=== PATIENT | male | born 1965 ===

== ENCOUNTER 2017-09-29 06:48 | Day surgery (SDC) | payer OTHER ==
[~2017-09-29] VITALS: Ht 170.2 cm; Wt 95.3 kg
[2017-09-29] VITALS (10 sets, daily range): BP systolic 128–158; BP diastolic 68–91
[~2017-09-29 06:48] MED LIST: LOSARTAN POTAS100 MG ORAL
[2017-09-29] MEDS ORDERED: TOPIRAMATE25 M1 ORAL (07:30)
[2017-09-29] MEDS ORDERED: VENLAFAXINE H37.5 M1 ORAL (07:30)
[2017-09-29 07:50] LABS: BASOPHILS % (AUTO) 1.4 % (0.0-2.0); EOSINOPHILS % (AUTO) 3.8 % (0.0-3.0); MEAN CORPUSCULAR HGB CONC 33.3 G/DL (32.0-36.0); MEAN CORPUSCULAR VOLUME 96 FL (80-99); MEAN PLATELET VOLUME 8.6 FL (6.5-10.1); MONOCYTES % (AUTO) 15.6 % (1.0-10.0); NEUTROPHILS % (AUTO) 47.2 % (45.0-75.0); PLATELET COUNT 211 K/UL (150-450); RED BLOOD COUNT 4.47 M/UL (4.70-6.10); RED CELL DISTRIBUTION WIDTH 11.7 % (11.6-14.8); WHITE BLOOD COUNT 5.2 K/UL (4.8-10.8)
[2017-09-29 07:55] LABS: ANION GAP 8 mmol/L (5-15); CALCIUM 8.7 MG/DL (8.5-10.1); CARBON DIOXIDE 25 MMOL/L (21-32); CHLORIDE 107 MMOL/L (98-107); CREATININE 0.8 MG/DL (0.55-1.30); GLOMERULAR FILTRATION RATE > 60 mL/min (>60); POTASSIUM 3.9 MMOL/L (3.5-5.1); SODIUM 140 MMOL/L (136-145)
[2017-09-29] MEDS ORDERED: ceFAZolin sod 1 GM in NS 55 ML IVPB ONE (08:00)
[2017-09-29] MEDS ORDERED: Lidocaine 1% Plain 30 ml INJ ONE ×2 (08:59→10:35)
[2017-09-29] MEDS ORDERED: Dexamethasone 4mg/ml vial ONE ×2 (08:59→10:35)
[2017-09-29] MEDS ORDERED: Betadine 10% Oint 15gm TOPIC ONE ×2 (08:59→10:35)
[2017-09-29] MEDS ORDERED: Bacitracin 50000 Units Vial ONE ×2 (09:00→10:35)
[2017-09-29] MEDS ORDERED: Bupivacaine 0.25% Inj 30ml INJ ONE ×2 (09:00→10:35)
--- NOTE | 2017-09-29 09:24 | Pre-Procedure Note/Attestation ---
Pre-Procedure Note/Attestation Complete Prior to Procedure Planned Procedure: bilateral Procedure Narrative: correction of hammer toe bilateral 5th with arthroplasty, MPJ and tendon release release with possible K-wire fixation Indications for Procedure Pre-Operative Diagnosis: painful hammer toe and MPJ contraction bilateral 5th . Attestation I attest that I discussed the nature of the procedure; its benefits; risks and complications; and alternatives (and the risks and benefits of such alternatives ), prior to the procedure, with the patient (or the patient's legal route sales representative). I attest that, if there was a reasonable possibility of needing a blood transfusion, the patient (or the patient's legal route sales representative) was given the [place] [employer] standardized written summary, pursuant to the Boni Blake Blood Safety Act ([place] Health and Safety Code # 1645, as amended). I attest that I re-evaluated the patient just prior to the surgery and that there has been no change in the patient's H&P, except as documented below: DAQUAN EDMONDSON DPM Sep 29, 2017 09:24
[2017-09-29] MEDS ORDERED: fentaNYL 100 mcg/2 mL IV ONE (09:30)
[2017-09-29] MEDS ORDERED: NS Irrig 1000ml ONE (09:30)
[2017-09-29] MEDS ORDERED: Ketorolac 30mg Inj ONE (09:30)
[2017-09-29] MEDS ORDERED: Midazolam 2mg/2ml Inj ONE (09:30)
[2017-09-29] MEDS ORDERED: LR 1000ml ONE (09:30)
[2017-09-29] MEDS ORDERED: Metoclopramide 10mg/2ml Inj ONE (09:30)
[2017-09-29] MEDS ORDERED: Propofol 1,000mg/ 100ml btl IV ONE (09:30)
[2017-09-29] MEDS ORDERED: Propofol 200mg/20ml IV ONE (09:30)
[2017-09-29] MEDS ORDERED: Sterile Water Irrig 1000ml IRRIG ONE (09:30)
[2017-09-29] MEDS ORDERED: LR 1000ml 1,000 ML IVLG SCH (10:08)
--- NOTE | 2017-09-29 10:11 | Anethesia Preoperative Eval ---
Anesthesia Pre-op PMH/ROS General Date of Evaluation: Sep 29, 2017 Time of Evaluation: 09:30 Anesthesiologist: christiano ASA Score: ASA 2 Mallampati Score Class I : Soft palate, uvula, fauces, pillars visible Class II: Soft palate, uvula, fauces visible Class III: Soft palate, base of uvula visible Class IV: Only hard plate visible Mallampati Classification: Class II Surgeon: Jesi Diagnosis: Hammertoe Surgical Procedure: Hamertoe Repair Anesthesia History: none Family History: no anesthesia problems Allergies: Coded Allergies: No Known Allergies (Unverified , 09/29/17) Medications: see eMAR Past Medical History Cardiovascular: Reports: HTN Anesthesia Pre-op Phys. Exam Physician Exam Last Vital Signs Date Time Temp Pulse Resp B/P (MAP) Pulse Ox O2 Delivery O2 Flow Rate FiO2 09/29/17 07:33 97.8 56 17 144/90 96 Room Air Constitutional: NAD Neurologic: CN 2-12 intact Cardiovascular: RRR Respiratory: CTA Gastrointestinal: S/NT/ND Airway Exam Mallampati Score: Class II MO: full ROM: full Teeth: intact Anesthesia Pre-op A/P Labs Hematology Test 09/29/17 07:34 White Blood Count 5.2 K/UL (4.8-10.8) Red Blood Count 4.47 M/UL (4.70-6.10) L Hemoglobin 14.3 G/DL (14.2-18.0) Hematocrit 42.9 % (42.0-52.0) Mean Corpuscular Volume 96 FL (80-99) Mean Corpuscular Hemoglobin 32.0 PG (27.0-31.0) H Mean Corpuscular Hemoglobin Concent 33.3 G/DL (32.0-36.0) Red Cell Distribution Width 11.7 % (11.6-14.8) Platelet Count 211 K/UL (150-450) Mean Platelet Volume 8.6 FL (6.5-10.1) Neutrophils (%) (Auto) 47.2 % (45.0-75.0) Lymphocytes (%) (Auto) 32.0 % (20.0-45.0) Monocytes (%) (Auto) 15.6 % (1.0-10.0) H Eosinophils (%) (Auto) 3.8 % (0.0-3.0) H Basophils (%) (Auto) 1.4 % (0.0-2.0) Coagulation Test 09/29/17 07:34 Prothrombin Time 10.0 SEC (9.30-11.50) Prothromb Time International Ratio 1.0 (0.9-1.1) Activated Partial Thromboplast Time 27 SEC (23-33) Chemistry Test 09/29/17 07:34 Sodium Level 140 MMOL/L (136-145) Potassium Level 3.9 MMOL/L (3.5-5.1) Chloride Level 107 MMOL/L (98-107) Carbon Dioxide Level 25 MMOL/L (21-32) Anion Gap 8 mmol/L (5-15) Blood Urea Nitrogen 20 mg/dL (7-18) H Creatinine 0.8 MG/DL (0.55-1.30) Estimat Glomerular Filtration Rate > 60 mL/min (>60) Glucose Level 93 MG/DL (74-106) Calcium Level 8.7 MG/DL (8.5-10.1) Risk Assessment & Plan Plan: MAC Local Status Change Before Surgery: No Pre-Antibiotics Drug: Ancef Given Within 1 Hr of Incision: Yes Time Given: 09:45 Stephen Marquez M.D. Sep 29, 2017 10:11
--- NOTE | 2017-09-29 10:14 | Immediate Post-Op Evaluation ---
Immediate Post-Op Evalulation Immediate Post-Op Evalulation Procedure: Bilateral Hammertoe Correction Date of Evaluation: Sep 29, 2017 Time of Evaluation: 11:00 IV Fluids: 1000 Blood Products: 0 Estimated Blood Loss: 0 Urinary Output: 0 Blood Pressure Systolic: 129 Blood Pressure Diastolic: 80 Pulse Rate: 90 Respiratory Rate: 16 O2 Sat by Pulse Oximetry: 99 Temperature (Fahrenheit): 98 Pain Score (1-10): 0 Nausea: No Vomiting: No Patient Status: awake, reacts, patent Hydration Status: adequate Drug: Ancef Given Within 1 Hr of Incision: Yes Time Given: 09:40 Stephen Marquez M.D. Sep 29, 2017 10:14
[2017-09-29] MEDS ORDERED: DiphenhydrAMINE 50mg/ml Inj IVP PRN (10:15)
[2017-09-29] MEDS ORDERED: Hydromorphone 0.5mg/0.5ml inj IVP PRN (10:15)
[2017-09-29] MEDS ORDERED: Morphine Sulfate 2mg/ml Inj IVP PRN (10:15)
[2017-09-29] MEDS ORDERED: Midazolam 2mg/2ml Inj IVP PRN (10:15)
[2017-09-29] MEDS ORDERED: Ketorolac 30mg Inj IV PRN (10:15)
[2017-09-29] MEDS ORDERED: Metoclopramide 10mg/2ml Inj IVP PRN (10:15)
[2017-09-29] MEDS ORDERED: fentaNYL 100 mcg/2 mL IV PRN (10:15)
--- NOTE | 2017-09-29 10:15 | 48 Hour Post Anesthesia Eval ---
Post Anesthesia Evaluation Procedure: Bilateral Hammertoe Correction Date of Evaluation: Oct 01, 2017 Time of Evaluation: 08:00 Blood Pressure Systolic: 128 0: 69 Pulse Rate: 68 Respiratory Rate: 16 Temperature (Fahrenheit): 99 O2 Sat by Pulse Oximetry: 99 Airway: patent Nausea: No Vomiting: No Pain Intensity: 0 Hydration Status: adequate Mental Status/LOC: patient returned to baseline Post-Anesthesia Complications: none Follow-up care needed: patient intructions given Stephen Marquez M.D. Sep 29, 2017 10:15
--- NOTE | 2017-09-29 11:21 | Brief Operative Note ---
Immediate Post Operative Note Operative Note Pre-op Diagnosis: painful hammer toe and MPJ contraction bilateral 5th . Procedure: correction of hammer toe with arthroplasty , MPJ release,color blender tendon release and k-wire fixation . Post-op Diagnosis: same as pre op Surgeon: daquan lindsey Anesthesiologist: abdulkadir cota Anesthesia: MAC Specimen: yes Complications: none Condition: stable Fluids: non Estimated Blood Loss: none Drains: none Tourniquet time: 66 Implant(s) used?: Yes DAQUAN LINDSEY DPM Sep 29, 2017 11:21
--- NOTE | 2017-09-29 14:08 | Diagnostic Imaging Report ---
Indication: Pain, hammertoe Technique: 3 views right foot Comparison: None Findings: Small ossific density projects at the base of the fifth middle phalanx. This may be posttraumatic or developmental. There is hammertoe deformity of the fifth toe, less striking hammertoe deformities of the second through fourth toes. There are plantar and calcaneal spurs. No acute fractures. No dislocations. Impression: Findings is noted. No definite acute process
--- NOTE | 2017-09-29 14:09 | Diagnostic Imaging Report ---
Indication: Pain, hammertoe Technique: 3 views left foot Comparison: none Findings: No acute fractures. No dislocations. Joint spaces are preserved. There are small calcaneal and plantar spurs. No radiopaque foreign body Impression: No acute process
--- NOTE | 2017-09-29 16:35 | Diagnostic Imaging Report ---
Indication: POST-OP, pain Technique: 3 views left foot Comparison: 4 hours earlier Findings: Interim osteotomy of the head of the fifth proximal phalanx, with placement of a K wire. Small amount of gas within the soft tissues presumably represents retained air from the surgical exposure Impression: Postsurgical left foot. No unusual features
--- NOTE | 2017-09-29 16:36 | Diagnostic Imaging Report ---
Indication: POST-OP , pain Technique: 3 views right foot Comparison: none Findings: Interim placement of a K wire through the fifth digit. This appears well aligned. Small amount of soft tissue gas presumably reflects retained air from the surgical exposure Impression: Postsurgical right foot, as described. No unusual features
--- NOTE | 2017-09-29 21:16 | Pre-op HX & Phy Repo 2 SIG ---
DATE OF ADMISSION: 09/29/2017 PREOPERATIVE PODIATRIC HISTORY AND PHYSICAL DATE OF OPERATION: 09/29/[address] [facility]. CHIEF COMPLAINT: This is a 51-year-old male complaining of painful bilateral fifth toe for the past few years. The patient has stated that he had two prior surgeries to correct the hammertoe that has been producing the painful cone on his foot. This deformity has been progressively worsening over the last year. He has tried numerous conservative measures including padding, offloading, shoe gear modification, activity modification, as well as prior surgery, this has not decreased the pain. He reports no recent illnesses. No recurrent nausea, vomiting, chills, or shortness of breath. PAST MEDICAL HISTORY: None pertinent. PAST SURGICAL HISTORY: Toe surgery x2 bilateral fifth 3 and 5 years. MEDICATIONS: The patient denies. ALLERGIES: No known drug allergies. SOCIAL HISTORY: Denies alcohol, tobacco, or illicit drugs. FAMILY HISTORY: No pertinent findings. PHYSICAL EXAMINATION: VITAL SIGNS: Temperature is 97.6 degrees, pulse is 62, respiratory rate is 18, blood pressure is 124/74, and O2 is 99% on room temperature. DERMATOLOGICAL: There are no open lesions. A hyperkeratotic lesion on PIPJ of bilateral fifth toe. NEUROLOGICAL: Sensation intact to light touch. VASCULAR: Dorsalis pedis and posterior tibial artery are palpable. No edema or erythema noted. MUSCULOSKELETAL: Contraction of bilateral fifth toe is noticed with contraction of the MPJ level as well. Pain on palpation, movement, and decrease in movement. The toe is in the contracted position. Full muscle strength noticed. LABORATORY DATA: Has been checked. ASSESSMENT AND PLAN: This is a 51-year-old male with bilateral fifth toe pain over the past few years. The pain has been progressively worsening. The patient has tried numerous conservative measures and is still experiencing daily pain. Recommended surgery as a next step in management. Risks, benefits, and alternatives were discussed with the patient in detail, who understands and would like to proceed with surgical intervention. All patient's questions and concerns have been addressed. The patient is scheduled to have surgery today at [facility]. Danny Dennison D.P.M. DR: MARJORIE JOB#: [id number] CC:
--- NOTE | 2017-09-29 23:15 | Operative Note - Dictated ---
DATE OF OPERATION: 09/29/2017 LOCATION: [facility]. SURGEON: Danny Dennison D.P.M. ANESTHESIOLOGIST: Dr. Stephen Mccord. PREOPERATIVE DIAGNOSIS: Bilateral fifth hammertoe with contracted metatarsophalangeal join. POSTOPERATIVE DIAGNOSIS: Bilateral fifth hammertoe with contracted metatarsophalangeal join. PROCEDURE: Correction of hammertoe with arthroplasty and release of MPJ and tendon release, bilateral fifth. HEMOSTASIS: Pneumatic ankle tourniquet set at 250 mmHg bilateral. ESTIMATED BLOOD LOSS: Negligible. MATERIAL USED: A 3-0 Vicryl, 4-0 nylon, and 0.32 K-wire. INJECTABLE: 20 mL of 0.25% Marcaine and 1% lidocaine in equal amounts were injected in a Austin block fashion on the fifth MPJ bilaterally intraoperatively at the end of the case. A 8 mL of 0.25% Marcaine, which included 4 mL of dexamethasone. PATHOLOGY: Bone resected from the head of the proximal phalanx, was sent for pathology and further study. DRESSING: The incision was covered using Xeroform, 4x4 gauze, Kerlix, and Coban. COMPLICATIONS: None. CONDITION: Stable. DESCRIPTION OF PROCEDURE: The patient was brought into the operating room and was assisted onto the operating table in supine position. He was well padded to avoid area of excessive pressure. The patient was then given 1 g of Ancef before the start of surgery. A time-out was performed, cotton padded, and pneumatic ankle tourniquet was then placed on the the patient's right as well as left ankle. A local anesthetic block was administered to the left and the right foot in a Austin block fashion consisting of 20 mL of 1:1 mixture of 0.25% Marcaine and lidocaine. The foot was then scrubbed, prepared, and draped in aseptic manner. Attention was directed to the left foot addressing the hyperkeratotic lesion on the proximal interphalangeal joint. A dorsal incision consisting of double wedge that were in line together encompassing the hyperkeratotic tissue. The incision was deepened and excised. Further, the incision was deepened through subcutaneous tissue down to the level of the PIP joint using new blade retracting all vital structures. The head of the proximal phalanx was then exposed from the capsule. Approximately, 3 mm of the head was osteotomized utilizing a sagittal saw. At this time, attention was directed to the MPJ of the fifth on the left where a stab incision was done. Through the stab incision, the tendon of the extensor was released as well as the dorsal, medial, and lateral aspect of the capsule of the MPJ of the fifth. Immediate reduction was noticed. The toe was in great alignment. It should be noticed that this toes had two prior surgeries. There were numerous scar tissues encountered during the procedure. At this time, a K-wire was utilized. The K-wire was driven into the middle phalanx down and to the tip of the toe and was retrograded through the proximal phalanx not crossing the MPJ. The K-wire was bent, cut, and capped. At this time, attention was directed to the incision site where copious amounts of lavage was utilized to clean the area. Subcutaneous tissue and the tendons were reapproximated using 3-0 Vicryl and subsequently the skin was closed using 4-0 nylon. An injection was then administrated containing dexamethasone to reduce inflammation. The incision site was then dressed using Xeroform, Betadine ointment, 4x4, Kerlix, and Coban. Ankle tourniquet was deflated. Immediate hyperemia was noted to digits 1 through 5 on the left. At this time, attention was then directed to the right foot where hyperkeratotic lesion was noticed at the PIP joint. A pen was utilized to severiano the incision area. A double elliptical incision was made encompassing the hyperkeratotic tissue. This incision was further retracted proximally that would include MPJ joint. The incision was deepened through subcutaneous tissue retracting all vital signs. At this time, attention was directed to the head of the proximal phalanx. Capsulotomy was utilized. Head became exposed approximately 3 to 4 mm of the head, and the proximal phalanx was osteomized using sagittal saw and passed from the field. Attention was then directed to the MPJ of the right foot where capsulotomy was performed on the dorsal, medial, and lateral and as well as a stab incision to release the extensor tendon. The toe was noticed to be in the rectus position. A K-wire was again utilized, a 0.32 K-wire, which was driven from the middle phalanx down to the tip of the toe and retracted back to the proximal phalanx not crossing the MPJ. Copious amounts lavage was utilized. Subcutaneous tissue and the capsule were reapproximated using 3-0 Vicryl. Subsequently, the skin was closed using 4-0 nylon. At this time, an injection of lidocaine including dexamethasone was injected in the area to decrease the postoperative inflammation process. The incision site was dressed using Betadine ointment, 4x4, Kerlix, and Coban. Upon completion of incision, the right pneumatic ankle tourniquet was deflated. Immediate hyperemia was noted 1 through 5 on the right foot. The patient tolerated the procedure and anesthesia well. He will be transferred from the operating to recovery room where crutches and postoperative instructions were given to the patient. The patient was reminded to take all medications and was set appointment for the next Monday in the clinic hours to be seen. Danny Dennison D.P.M. DR: Esther JOB#: [id number] CC:
--- NOTE | 2017-09-30 18:22 | Cardiology Report ---
APPROVED REPORT EKG Measurement Heart [id number] Sinus bradycardia Otherwise normal ECG
== END 2017-09-29 14:30 | disposition home or self-care (01) ==
LOC: SUR 06:48
DX: M20.42 Other hammer toe(s) (acquired), left foot (principal); M20.41 Other hammer toe(s) (acquired), right foot; I10 Essential (primary) hypertension
CPT/HCPCS: 26530; 28285; 36415; 73630; 80048; 85025; 85610; 85730; 93005; J0690; J1100; J1885; J2001; J2250; J2405; J2704; J2765; J3010; J3490; J7120; 94003; 94150